=== PATIENT | female | born 1970 | race Two or more races ===

== ENCOUNTER 2024-02-11 21:46 | Emergency (ER) | payer OTHER ==
[2024-02-11 21:53] VITALS: BP 124/70; PULSE 89; RESP 16; TEMP 98.3; BMI 30.1
[2024-02-11] MEDS ORDERED: ACETAMINOPHEN INJECTION 100 ML IVPB ONE (23:00)
[2024-02-11 23:05] LABS: BASO % 0.7 % (0-2.0); EOS % 0.9 % (0-4.5); HEMOGLOBIN 15.4 GM/dL (10.7-15.3); LYMPH % 37.2 % (8-40); MCHC 34.2 g/dl (32.0-36.0); MEAN CELL VOLUME 99.3 fl (80-96); MEAN PLT VOLUME 7.4 fl (7.5-11.1); MONO % 7.4 % (3.8-10.2); NEUT % 53.8 % (42.8-82.8); PLATELET COUNT 262 10^3/uL (134-434); RBC 4.53 M/mm3 (3.60-5.2); RDW 13.2 % (11.6-15.6)
[2024-02-11] MEDS: ACETAMINOPHEN 1000 MG/100 ML BAG IVPB ONE (23:05)
[2024-02-11 23:12] LABS: CHLORIDE 108 mmol/L (98-107); SODIUM 132 mmol/L (136-145)
[2024-02-11 23:14] LABS: CALCIUM 8.4 mg/dL (8.5-10.1)
[2024-02-11 23:15] LABS: CO2 27 mmol/L (21-32); GLUCOSE,RANDOM 75 mg/dL (74-106)
[2024-02-11 23:18] LABS: CREATININE 0.7 mg/dL (0.55-1.3)
[2024-02-11 23:20] LABS: TOT PROT 7.8 g/dl (6.4-8.2)
[2024-02-11 23:21] LABS: ALK PHOS 76 U/L (45-117)
[2024-02-11 23:28] LABS: ANION GAP -3 mmol/L (4-13); BILIRUBIN,TOTAL < 0.2 mg/dL (0.2-1); POTASSIUM > 10.0 mmol/L (3.5-5.1); SGOT/AST 103 U/L (15-37); SGPT/ALT 28 U/L (13-61)
[2024-02-11] MEDS ORDERED: KETOROLAC TROMETHAMINE 15 MG/ML VIAL ONE (23:34)
[2024-02-11] MEDS: KETOROLAC TROMETHAMINE 15 MG/ML VIAL IVPUSH ONE (23:39)
== END 2024-02-12 00:17 | disposition home or self-care (01) ==
LOC: JER 21:46
PROC: 3E030NZ Introduction of Analgesics, Hypnotics, Sedatives into Peripheral Vein, Open Approach (ICD-10-PCS; principal; 2024-02-11)
PROC: 3E0303Z Introduction of Anti-inflammatory into Peripheral Vein, Open Approach (ICD-10-PCS; 2024-02-11)
DX: S29.011A Strain of muscle and tendon of front wall of thorax, initial encounter (principal); S20.213A Contusion of bilateral front wall of thorax, initial encounter; R51.9 Headache, unspecified; R42 Dizziness and giddiness; R11.0 Nausea; V48.5XXA Car driver injured in noncollision transport accident in traffic accident, initial encounter
CPT/HCPCS: 36415; 71046-TC-FY; 80053; 84484; 85025; 93005; 93010; 99285-25; J0131